=== PATIENT | female | born 1935 | race Caucasian/White ===

== ENCOUNTER 2016-07-19 18:54 | Inpatient (IN) | payer OTHER ==
--- NOTE | 2016-07-19 19:07 | CPEKG ---
Heart Rate: 90 RR Interval: 667 P-R Interval: 120 QRSD Interval: 92 QT Interval: 392 QTC Interval: 480 P [place]: 79 QRS [place]: 12 T Wave [place]: 55 EKG Severity - BORDERLINE ECG - EKG Impression: SINUS RHYTHM EKG Impression: BORDERLINE T ABNORMALITIES, ANTERIOR LEADS Electronically Signed By: Manoj Flores 19-Jul-2016 19:16:38
[2016-07-19] MEDS ORDERED: NS 1,000 ML IV ONE (19:10)
--- NOTE | 2016-07-19 19:15 | EDPHY ---
H & P Time Seen by Provider: 07/19/16 19:04 HPI/ROS: CHIEF COMPLAINT: Failure to thrive HISTORY OF PRESENT ILLNESS: patient is an 81-year-old female who comes to the emergency department by EMS for failure to thrive. She has a history only of hypertension. EMS states that they were at her house yesterday for lift assist. Today she was lying on the floor because she was too weak to get up. She denies any trauma or injury. She is dehydrated clinically. her only family lives in [place]. Paramedics state that the house was in disarray and that the toilet are not in working order. Her family has not been to see her for 3 years at which time she was doing much better. REVIEW OF SYSTEMS: Constitutional: denies: chills, fever, recent illness, recent injury EENTM: denies: blurred vision, double vision, nose congestion Respiratory: denies: cough, shortness of breath Cardiac: denies: chest pain, irregular heart rate, lightheadedness, palpitations Gastrointestinal/Abdominal: denies: abdominal pain, diarrhea, nausea, vomiting, blood streaked stools Genitourinary: denies: dysuria, frequency, hematuria, pain Musculoskeletal: generalized weakness no focal weakness Skin: denies: lesions, rash, jaundice, bruising Neurological: denies: headache, numbness, paresthesia, tingling, dizziness, weakness Hematologic/Lymphatic: denies: blood clots, easy bleeding, easy bruising Immunologic/allergic: denies: HIV/AIDS, transplant EXAM: GENERAL: thin, dirty teeth, stool on close, in no acute distress. Alert and making jokes HEAD: Atraumatic, normocephalic. EYES: Pupils equal round and reactive to light, extraocular movements intact, sclera anicteric, conjunctiva are normal. ENT: TMs normal, nares patent, oropharynx clear without exudates. dry mucous membranes. NECK: Normal range of motion, supple without lymphadenopathy or JVD. LUNGS: Breath sounds clear to auscultation bilaterally and equal. No wheezes rales or rhonchi. HEART: Regular rate and rhythm without murmurs, rubs or gallops. ABDOMEN: Soft, nontender, normoactive bowel sounds. No guarding, no rebound. No masses appreciated. BACK: No CVA tenderness, no spinal tenderness, step-offs or deformities EXTREMITIES: Normal range of motion, no pitting or edema. No clubbing or cyanosis. NEUROLOGICAL: Cranial nerves II through XII grossly intact. Normal speech, normal gait. 5/5 strength, normal movement in all extremities, normal sensation , no headache PSYCH: Normal mood, normal affect. SKIN: Warm, dry, normal turgor, no visible rashes or lesions. Source: Patient Exam Limitations: No limitations - Personal History Tetanus Vaccine Date: 2005 - Medical/Surgical History Hx Asthma: No Hx Chronic Respiratory Disease: No Hx Diabetes: No Hx Cardiac Disease: No Hx Renal Disease: No Hx Cirrhosis: No Hx Alcoholism: No Other PMH: HTN - Family History Significant Family History: No pertinent family hx - Social History Smoking Status: Former smoker Alcohol Use: Sober Drug Use: None Constitutional: Initial Vital Signs Temperature (C) 37 C 07/19/16 19:10 Heart Rate 83 07/19/16 19:10 Respiratory Rate 20 07/19/16 19:10 Blood Pressure 169/83 H 07/19/16 19:10 O2 Sat (%) 95 07/19/16 19:10 O2 Delivery Mode Room Air Allergies/Adverse Reactions: No Known Allergies Allergy (Unverified 01/26/14 18:41) Home Medications: Medication Instructions Recorded ATENOLOL [Atenolol 50 mg] 50 mg PO HS 07/19/16 Ibuprofen [Motrin (*)] 200 mg PO BID PRN 07/19/16 Lisinopril [Zestril 5 mg (*)] 5 mg PO HS 07/19/16 Medical Decision Making - Diagnostics EKG Interpretation: An EKG obtained and was read and documented in trace view. Please see trace view for full reading and report. Sinus rhythm, no acute ischemic changes ED Course/Re-evaluation: The patient will be admitted for failure to thrive and inability to care for herself. She also may have a urinary tract infection she has a diaper rash from fecal contamination. The urinalysis was obtained with a catheter. discussed the case with Dr. Mariah Mazariegos who will admit. Differential Diagnosis: Partial list of the Differential diagnosis considered include but were not limited to; Failure to thrive, dehydration, urinary tract infection and although unlikely based on the history and physical exam, I also considered CVA , acute coronary disease. - Data Points Laboratory Results: Laboratory Results 07/19/16 19:00 07/19/16 19:00 07/19/16 07/19/16 07/19/16 19:40 19:00 19:00 WBC 8.86 10^3/uL 10^3/uL (3.80-9.50) RBC 4.32 10^6/uL 10^6/uL (4.18-5.33) Hgb 13.6 g/dL g/dL (12.6-16.3) Hct 40.9 % % (38.0-47.0) MCV 94.7 fL fL (81.5-99.8) MCH 31.5 pg pg (27.9-34.1) MCHC 33.3 g/dL g/dL (32.4-36.7) RDW 13.3 % % (11.5-15.2) Plt Count 211 10^3/uL 10^3/uL (150-400) MPV 11.3 fL fL (8.7-11.7) Neut % (Auto) 71.4 % % (39.3-74.2) Lymph % (Auto) 16.7 % % (15.0-45.0) Cassia % (Auto) 9.8 % % (4.5-13.0) Eos % (Auto) 0.9 % % (0.6-7.6) Baso % (Auto) 0.7 % % (0.3-1.7) Nucleat RBC Rel Count 0.0 % % (0.0-0.2) Absolute Neuts (auto) 6.33 10^3/uL 10^3/uL (1.70-6.50) Absolute Lymphs (auto) 1.48 10^3/uL 10^3/uL (1.00-3.00) Absolute Monos (auto) 0.87 10^3/uL H 10^3/uL (0.30-0.80) Absolute Eos (auto) 0.08 10^3/uL 10^3/uL (0.03-0.40) Absolute Basos (auto) 0.06 10^3/uL 10^3/uL (0.02-0.10) Absolute Nucleated RBC 0.00 10^3/uL 10^3/uL (0-0.01) Immature Gran % 0.5 % % (0.0-1.1) Immature Gran # 0.04 10^3/uL 10^3/uL (0.00-0.10) Sodium 142 mEq/L mEq/L (134-144) Potassium 4.2 mEq/L mEq/L (3.5-5.2) Chloride 109 mEq/L mEq/L (97-110) Carbon Dioxide 20 mEq/l L mEq/l (22-31) Anion Gap 13 mEq/L mEq/L (8-16) BUN 42 mg/dL H mg/dL (7-23) Creatinine 0.8 mg/dL mg/dL (0.6-1.0) Estimated GFR > 60 Glucose 88 mg/dL mg/dL (70-100) Calcium 9.3 mg/dL mg/dL (8.5-10.4) Urine Color YELLOW Urine Appearance HAZY Urine pH 5.0 (5.0-7.5) Ur Specific [place] 1.023 (1.002-1.030) Urine Protein NEGATIVE (NEGATIVE) Urine Ketones 2+ H (NEGATIVE) Urine Blood NEGATIVE (NEGATIVE) Urine Nitrate NEGATIVE (NEGATIVE) Urine Bilirubin NEGATIVE (NEGATIVE) Urine Urobilinogen NEGATIVE EU EU (0.2-1.0) Ur Leukocyte Esterase TRACE H (NEGATIVE) Urine RBC 10-15 /hpf H /hpf (0-3) Urine WBC 10-15 /hpf H /hpf (0-3) Ur Epithelial Cells TRACE /lpf /lpf (NONE-1+) Amorphous Sediment PRESENT /hpf /hpf (NONE-1+) Hyaline Casts 1-5 /lpf /lpf (0-1) Urine Mucus TRACE /lpf /lpf (NONE-1+) Urine Glucose NEGATIVE (NEGATIVE) Departure - Departure Disposition: [facility] Inpatient Acute Clinical Impression: Dehydration Failure to thrive Qualifiers: Failure to thrive age range: in adult Qualified Code(s): R62.7 - Adult failure to thrive Urinary tract infection Qualifiers: Urinary tract infection type: acute cystitis Hematuria presence: without hematuria Qualified Code(s): N30.00 - Acute cystitis without hematuria Condition: Fair
[2016-07-19 19:20] LABS: % IMMATURE GRANULYOCYTES 0.5 % (0.0-1.1); ABSOLUTE IMMATURE GRANULOCYTES 0.04 10^3/uL (0.00-0.10); ADD DIFF? NO; ADD MORPH? NO; ADD SCAN? NO; ATYPICAL LYMPHOCYTE FLAG 0 (0-99); FRAGMENT RBC FLAG 0 (0-99); HEMATOCRIT 40.9 % (38.0-47.0); HEMOGLOBIN 13.6 g/dL (12.6-16.3); LEFT SHIFT FLG 0 (0-99); LIPEMIA HEMOLYSIS FLAG 80 (0-99); MEAN CELL HEMOGLOBIN 31.5 pg (27.9-34.1); MEAN CELL HEMOGLOBIN CONCENTR. 33.3 g/dL (32.4-36.7); MEAN CELL VOLUME 94.7 fL (81.5-99.8); MEAN PLATELET VOLUME 11.3 fL (8.7-11.7); PLATELET CLUMPS FLAG 0 (0-99); PLATELET COUNT 211 10^3/uL (150-400); RED BLOOD CELL COUNT 4.32 10^6/uL (4.18-5.33); RED CELL DISTRIBUTION WIDTH 13.3 % (11.5-15.2)
[2016-07-19 19:36] LABS: ANION GAP 13 mEq/L (8-16); CALCIUM 9.3 mg/dL (8.5-10.4); CARBON DIOXIDE 20 mEq/l (22-31); CHLORIDE 109 mEq/L (97-110); CREATININE 0.8 mg/dL (0.6-1.0); GLOMERULAR FILTRATION RATE > 60; GLUCOSE 88 mg/dL (70-100); POTASSIUM 4.2 mEq/L (3.5-5.2); SODIUM 142 mEq/L (134-144)
[2016-07-19 19:53] LABS: COLOR YELLOW; LEUKOCYTE ESTERASE,URINE TRACE (NEGATIVE); NITRITE,URINE NEGATIVE (NEGATIVE)
[2016-07-19 20:00] LABS: AMORPHOUS PRESENT /hpf (NONE-1+); MUCUS TRACE /lpf (NONE-1+)
[2016-07-19] MEDS ORDERED: CEFTRIAXONE 1 GM/DEXTROSE/50 ML BAG IV ONE (20:21)
[2016-07-19] MEDS ORDERED: ONDANSETRON DISINTEGRATING 4 MG TAB PO PRN (22:40)
[2016-07-19] MEDS ORDERED: ACETAMINOPHEN 325 MG TAB PO PRN (22:40)
[2016-07-19] MEDS ORDERED: ONDANSETRON 4 MG/2 ML VIAL IVP PRN (22:40)
[2016-07-19] MEDS: LISINOPRIL 5 MG TAB PO SCH ×2 (23:17→23:19)
[2016-07-19] MEDS: ATENOLOL 50 MG TAB PO SCH ×2 (23:17→23:19)
[2016-07-19] MEDS ORDERED: NS 1,000 ML IV SCH (23:45)
--- NOTE | 2016-07-20 01:24 | GHP ---
[f rep st] HISTORY AND PHYSICAL DATE OF ADMISSION: 07/19/2016 CHIEF COMPLAINT: Weakness, syncope. HISTORY OF PRESENT ILLNESS: Patient is an 81-year-old female with past medical history of hypertension, who presented with diffuse weakness and 3 syncopal episodes within the last week. She reports decreased p.o. intake for the last several months due to increased stressors with family issues involving her son. She buys groceries, but then has no energy to cooks meals except for breakfast. She denies any prodromal symptoms including chest pain, shortness of breath, dizziness, palpitations, diaphoresis, or nausea. She denies injury during any of these falls. She does not think she hit her head. She did have some dry heaving with a couple of the episodes. Denies any fevers, chills, or sweats. No cough. No diarrhea. She admits that she is overall weak and probably needs to move to assisted living and is now coming to terms with it. Her son from [place] came in town and encouraged her to come to the emergency room. She has reported weight loss over the last year, but could not quantify. REVIEW OF SYSTEMS: I completed a 10-point review of systems, negative except as noted in HPI. PAST MEDICAL HISTORY: Hypertension. PAST SURGICAL HISTORY: Hysterectomy. SOCIAL HISTORY: Lives alone in [place], has 2 sons, 1 in [place]. Remote cigarettes, occasional alcohol, no drugs. FAMILY HISTORY: Thyroid issues. Father had an ID. ALLERGIES: No known drug allergies. MEDICATIONS: At home lisinopril 5 mg daily, atenolol 50 q.h.s., Ibuprofen as needed. PHYSICAL EXAM: VITAL SIGNS: Temperature 36.8, blood pressure 122/58 to 169/83 , heart rate is 94-104, respirations 16, 98% on room air. GENERAL: Frail- appearing, no acute distress. HEENT: PERRLA. Dry mucous membranes. CV: Regular rate and rhythm. No murmurs, gallops, or rubs. LUNGS: Clear to auscultation. No crackles. GI: Soft, nontender, nondistended. No suprapubic tenderness. MUSCULOSKELETAL: Generalized weakness, but good hand strength. SKIN: Warm, dry skin. Poor skin turgor. NEURO: 2 through 12 intact. PSYCH: Alert and oriented x3. Very pleasant. LABORATORY DATA: WBC 8, hemoglobin 13, hematocrit 40, platelets 211, sodium 142 , potassium 4.2, chloride 109, carbon dioxide 20, BUN 42, creatinine 0.8, glucose 88, calcium 9.3. LFTs are pending. EKG is personally reviewed by me. ST flattening anterior leads. No old to compare. UA 10-15 WBCs. Urine culture pending. ASSESSMENT AND PLAN: 1. Syncope: Differential includes orthostatic, arrhythmia versus seizure. Denies any prodromal symptoms to suggest arrhythmia. Will monitor on telemetry. Suspect orthostatic with poor p.o. intake. IVFs, check orthostatics. Consider echo in the morning. 2. Generalized weakness: check a TSH, treating for UTI. She admits that she should move to an assisted living facility and wants to talk to social media analyst in the morning. 3. Falls: decreased PO, UTI. Check Vit D. Physical therapy, occupational therapy to evaluate. 4. Urinary tract infection treated with ceftriaxone daily. Culture is pending. She is currently afebrile. 5. Accelerated HTN: cont home meds 6. Diet: Regular. 7. Deep venous thrombosis prophylaxis: Lovenox. 8. Disposition: Patient warrants inpatient admission given falls, risk for injury to self. Will monitor on telemetry. Physical therapy, occupational therapy evaluations. /[id number]/MODL MTDD
[2016-07-20 05:33] LABS: ALANINE AMINOTRANSFERASE 67 IU/L (9-52); ALBUMIN 3.1 g/dL (3.5-5.0); ALKALINE PHOSPHATASE 66 IU/L (38-126); ANION GAP 6 mEq/L (8-16); ASPARTATE AMINOTRANSFERASE 106 IU/L (14-46); BILIRUBIN,TOTAL 0.9 mg/dL (0.1-1.4); BILIRUBIN-CONJUGATED 0.4 mg/dL (0.0-0.5); BILIRUBIN-UNCONJUGATED 0.5 mg/dL (0.0-1.1); CALCIUM 8.4 mg/dL (8.5-10.4); CARBON DIOXIDE 24 mEq/l (22-31); CHLORIDE 112 mEq/L (97-110); CREATININE 0.7 mg/dL (0.6-1.0); GLOMERULAR FILTRATION RATE > 60; GLUCOSE 92 mg/dL (70-100); SODIUM 142 mEq/L (134-144); TOTAL PROTEIN 6.3 g/dL (6.3-8.2)
[2016-07-20] MEDS: ENOXAPARIN 40 MG/0.4 ML SYR SC SCH (08:44)
--- NOTE | 2016-07-20 08:53 | WOCRNPDOC ---
WOCRN Advanced Assessment Note - Skin Integrity Problem, Advanced Assess Bilateral Buttock Dressing Type: Open to Air Skin Integrity Problem Comment: Moderate incontinence associated dermatitis with fungal involvement. Antifungal barrier cream wound be beneficial. Coccyx Pressure Injury Dressing Type: Open to Air Exudate Amount: None Ayla Wound Tissue: Erythema, Macerated, Non-blanching Ayla Wound Swelling: Mild Wound Bed Color: Red, Yellow Wound Bed Constitution: Granulation Tissue, Adhered Slough Wound Edges: Attached Site Measurement - Head-to-Toe Length X Width X Depth (cm): 6.5x1x0.3 Pressure Injury Stage: Unstageable Pressure Injury Present on Admit: Yes Skin Integrity Problem Comment: Coccyx pressure injury combined with intertrigenous dermatitis. The superior 3 cm portion of this wound is open with 40% slough. The inferior portion has the epidermis intact but severely compromised and macerated. Due to continued incontinence a dressing cannot be placed at this time. Left Lateral Ankle Pressure Injury Dressing Type: Open to Air Exudate Amount: None Site Measurement - Head-to-Toe Length X Width X Depth (cm): 0.5x0.5xscab Pressure Injury Stage: Stage 2 Pressure Injury Present on Admit: Yes Left Lateral Foot Pressure Injury Dressing Type: Open to Air Exudate Amount: None Site Measurement - Head-to-Toe Length X Width X Depth (cm): 1.8x1.8x0 Pressure Injury Stage: Stage 1 Pressure Injury Present on Admit: Yes Left Lateral Heel Pressure Injury Dressing Type: Open to Air Wound Bed Constitution: Scab Site Measurement - Head-to-Toe Length X Width X Depth (cm): 0.5x0.5xscab Pressure Injury Stage: Stage 2 Pressure Injury Present on Admit: Yes
--- NOTE | 2016-07-20 15:17 | HOSPPROG ---
Hospitalist Progress Note Assessment/Plan: This is a 81-year-old female new to my care presenting with: # weakness and syncope most likely due to dehydration and malnutrition given her significant pre renal azotemia and ketonuria on presentation # doubt UTI suspect asymptomatic pyuria given her lack of urinary tract symptoms -DC IV antibiotics # weakness and mechanical falls # accelerated hypertension (controlled) Disposition: Patient remains weak and requires further IV hydration. Will plan to discharge to his group home for given the severity of her weakness and gait instability Subjective: feels weak and unsteady on her feet. admits to not eating or drinking leading up to admission. does not feel strong enough to return home Objective: Vital Signs Temp Pulse Resp BP Pulse Ox 36.8 C 84 13 134/64 H 95 07/20/16 12:00 07/20/16 12:00 07/20/16 12:00 07/20/16 12:00 07/20/16 12:00 Laboratory Results 07/20/16 04:35 07/19/16 07/20/16 07/21/16 05:59 05:59 05:59 Intake Total 250 Balance 250 - Physical Exam Constitutional: no apparent distress, appears nourished, not in pain Cardiovascular: regular rate and rhythym, no murmur, rub, or gallop Respiratory: no respiratory distress, no rales or rhonchi, clear to auscultation Gastrointestinal: normoactive bowel sounds, soft, non-tender abdomen, no palpable masses Skin: no rashes or abrasions, no fluctuance, no induration ICD10 Worksheet Patient Problems: Problems Problem Status Onset Failure to thrive Acute Dehydration Acute Urinary tract infection Acute
[2016-07-20] MEDS: LISINOPRIL 5 MG TAB PO SCH (20:59)
[2016-07-20] MEDS: ATENOLOL 50 MG TAB PO SCH (20:59)
[2016-07-21 05:43] LABS: ALANINE AMINOTRANSFERASE 60 IU/L (9-52); ALBUMIN 2.7 g/dL (3.5-5.0); ALKALINE PHOSPHATASE 52 IU/L (38-126); ANION GAP 3 mEq/L (8-16); ASPARTATE AMINOTRANSFERASE 66 IU/L (14-46); BILIRUBIN,TOTAL 0.8 mg/dL (0.1-1.4); CALCIUM 8.3 mg/dL (8.5-10.4); CARBON DIOXIDE 25 mEq/l (22-31); CHLORIDE 112 mEq/L (97-110); CREATININE 0.8 mg/dL (0.6-1.0); GLOMERULAR FILTRATION RATE > 60; GLUCOSE 103 mg/dL (70-100); POTASSIUM 4.2 mEq/L (3.5-5.2); SODIUM 140 mEq/L (134-144); TOTAL PROTEIN 5.7 g/dL (6.3-8.2)
[2016-07-21] MEDS: ENOXAPARIN 40 MG/0.4 ML SYR SC SCH (10:00)
--- NOTE | 2016-07-21 15:26 | HOSPPROG ---
Hospitalist Progress Note Assessment/Plan: This is a 81-year-old female new to my care presenting with: # weakness and syncope most likely due to dehydration and malnutrition given her significant pre renal azotemia and ketonuria on presentation (improving) - buff cap IV - encourage oral hydration and nutrition # doubt UTI suspect asymptomatic pyuria given her lack of urinary tract symptoms - continue to monitor off of antibiotics # weakness and mechanical falls on exam the patient has a pill rolling tremor as well as some cogwheel rigidity. I have discussed this with Dr. corral from Neurology will see the patient in consultation to further evaluate for Parkinson 's as a possible etiology for her increasing weakness and failure to thrive at home. # accelerated hypertension (controlled) Disposition: Patient remains weak. Will plan to discharge to [facility]dc for given the severity of her weakness and gait instability Subjective: Feeling stronger today. She is tolerating a regular diet and is drinking. She is still unsteady on her feet and plans to discharge to fdc facility once a bed is available. She denies any urinary complaints. She denies any fevers or chills. Objective: Vital Signs Temp Pulse Resp BP Pulse Ox 37 C 73 18 100/56 L 95 07/21/16 11:49 07/21/16 11:49 07/21/16 11:49 07/21/16 11:49 07/21/16 11:49 Laboratory Results 07/21/16 04:49 07/20/16 07/21/16 07/22/16 05:59 05:59 05:59 Intake Total 250 Balance 250 - Physical Exam Constitutional: no apparent distress, appears nourished, not in pain Cardiovascular: regular rate and rhythym, no murmur, rub, or gallop Respiratory: no respiratory distress, no rales or rhonchi, clear to auscultation , No rhonchi Gastrointestinal: normoactive bowel sounds, soft, non-tender abdomen, no palpable masses Genitourinary: no bladder fullness, no bladder tenderness Skin: warm, no rashes or abrasions, no fluctuance, no induration Neurologic: AAOx3 ( ), other ( Resting tremor with pill rolling; cogwheel rigidity in bilateral arms) ICD10 Worksheet Patient Problems: Problems Problem Status Onset Failure to thrive Acute Dehydration Acute Urinary tract infection Acute
--- NOTE | 2016-07-21 15:49 | NEUROPROG ---
Assessment: Adrianna Gerard CC: Diffuse weakness, Syncope HPI: This 81F patient was initially seen as an inpatient consult at [facility] on . She was admitted on 07/19/16 to [facility] for 1 week of diffuse weakness and 3 syncopal spells. The syncope was felt to be most likely from poor PO intake causing dehydration/malnutrition. She reported months of decreased PO intake due to stress and low energy levels. She was noted to have bacteria in her urine but it was not clear if it was a symptomatic UTI or not. She denied chest pain, SOB, dizziness, palpitations, [id number], or nausea. None of the syncope spells was associated with injury and she had no shaking or prolonged post-ictal states. She acknowledges she likely cannot care for herself at home and is open minded to an assisted living facility. She was noted to have bilateral hand pill rolling tremor prompting a neurology consult. PMHx: HTN, Hysterectomy Home Meds: lisinopril, atenolol, motrin SHx: lives alone in [place] FHx: thyroid, CA ROS: Pt denied acute fever, total vision loss, active severe chest pain, respiratory failure, total body severe rash, total bowel/bladder incontinence, psychosis, active seizures, or active bleeding O: VS bp 100/56 P73 RR18 Satting 95% on RA Temp 37C General: Alert Eyes: Fundoscopic exam not able to visualize optic disks CV: Heart RRR, no murmur, no carotid bruit Lungs: Clear to auscultation bilaterally, no rhonci or rales Neuro: - Mental: . Oriented x person/place/date . concentration appears normal . speech fluency/comprehension normal . memory appears normal . fund of knowledge appear intact - Cranial Nerves: . II: PERRL, VFFTC . III/IV/: EOMI, no nystagmus, normal smooth pursuits, no Ptosis . V: facial sensation intact to LT . VII: face symmetric to eye closure and smile . VIII: hearing intact to conversation . IX/X: uvula raises symmetrically . XI: SCM 5/5 B/L strength . XII: tongue protrudes midline w/nl strength - Motor: . Tone: bilateral tremor in both hands at rest and with movement, slightly increased tone in both arms that is subtle . 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 Bilateral Hand Tremor: Her neurologic exam showed bilateral hand tremor with some slight bilateral rigidity in both arms. She has no bradykinesia and mentation appears generally normal. She is under great stress and has not been eating. She may have a parkinsonian tremor but she may also have an essential tremor or orthostatic tremor (chronic dehydration). At this time, I feel the best therapy is placement in a situation to guarantee she gets good nutrition and then f/u with me in the outpatient clinic in 2-3 weeks to determine if the tremor requires treatment. She is in agreement with this plan. 2. Failure to Thrive: This appears to be multi-factorial from stress, advanced age, and possibly an underlying mild parkinsinism. Plan: - Agree with plans for placement in a facility to ensure good nutrition and hydration - F/U in neurology clinic in 2-4 weeks to consider medication trials for her bilateral hand tremor Objective: Vital Signs Temp Pulse Resp BP Pulse Ox 37 C 73 18 100/56 L 95 07/21/16 11:49 07/21/16 11:49 07/21/16 11:49 07/21/16 11:49 07/21/16 11:49 Laboratory Results 07/21/16 04:49 07/20/16 07/21/16 07/22/16 05:59 05:59 05:59 Intake Total 250 Balance 250 Allergies/Adverse Reactions: No Known Allergies Allergy (Unverified 01/26/14 18:41)
[2016-07-21] MEDS: ATENOLOL 50 MG TAB PO SCH (20:31)
[2016-07-21] MEDS: LISINOPRIL 5 MG TAB PO SCH (20:31)
[2016-07-22 03:41] VITALS: RESP 14
[2016-07-22 05:43] LABS: ALANINE AMINOTRANSFERASE 50 IU/L (9-52); ALBUMIN 2.6 g/dL (3.5-5.0); ALKALINE PHOSPHATASE 50 IU/L (38-126); ANION GAP 6 mEq/L (8-16); ASPARTATE AMINOTRANSFERASE 44 IU/L (14-46); BILIRUBIN,TOTAL 0.5 mg/dL (0.1-1.4); CALCIUM 8.3 mg/dL (8.5-10.4); CARBON DIOXIDE 24 mEq/l (22-31); CHLORIDE 113 mEq/L (97-110); CREATININE 0.7 mg/dL (0.6-1.0); GLOMERULAR FILTRATION RATE > 60; GLUCOSE 102 mg/dL (70-100); POTASSIUM 4.4 mEq/L (3.5-5.2); SODIUM 143 mEq/L (134-144); TOTAL PROTEIN 5.3 g/dL (6.3-8.2)
[2016-07-22] MEDS: ENOXAPARIN 40 MG/0.4 ML SYR SC SCH (08:34)
--- NOTE | 2016-07-22 11:36 | PDIAF ---
- Diagnosis Diagnosis: dehydration/malnutrition weakness Code Status: Do Not Resuscitate - Medication Management Discharge Medications: Medications to Continue on Transfer ATENOLOL [Atenolol 50 mg] 50 mg PO HS 07/19/16 [Last Taken 07/17/16] Ibuprofen [Motrin (*)] 200 mg PO BID PRN 07/19/16 [Last Taken 07/12/16] Lisinopril [Zestril 5 mg (*)] 5 mg PO HS 07/19/16 [Last Taken 07/17/16] Acetaminophen [Tylenol 325mg (*)] 650 mg PO Q4HRS PRN #0 tab 07/22/16 [Last Taken Unknown] Discharge Medications: Refer to the Discharge Home Medication list for PRN reason. - Orders Services needed: Registered Nurse, Physical Therapy, Occupational Therapy Diet Recommendation: no restrictions on diet Diet Texture: Regular Texture Diet - Follow Up Care Current Providers and Referrals: Patient,NotPresent [Unknown] - As per Instructions
[2016-07-22 12:24] VITALS: BP 118/47; PULSE 72; TEMP 98.3; O2SAT 95
--- NOTE | 2016-07-22 13:44 | GDS ---
[f rep st] DISCHARGE SUMMARY DISCHARGE DIAGNOSES: 1. Weakness and syncope, most likely due to dehydration and malnutrition given significant stress a t home. 2. Asymptomatic pyuria with urine growing Aerococcus urinae. 3. Longstanding urinary incontinence. 4. Resting tremor and rigidity, possibly due to dehydration and malnutrition versus underlying undi agnosed Parkinson's. 5. Controlled hypertension. CONSULTANTS: Dr. Eliecer Scanlon, Neurology. HOSPITAL COURSE AND STAY BY PROBLEM: Weakness and syncope: The patient was admitted to the [facility], where she initially presented feeling very weak, with possible syncopal episodes. On initial pre sentation, her BUN was 42 with a creatinine of 0.8. She had ketones in her urine as well as trace l eukocyte esterase and 10-15 WBCs. It was initially thought that she may have a urinary tract infect ion and received 2 doses of IV Rocephin. Upon further questioning of the patient, it sounds like garfield almonte has never had any urinary symptoms other than longstanding urinary incontinence. The patient's strength and labs improved with IV hydration and encouragement of oral diet. On day o f discharge, she tells me that she is starting to feel stronger but is agreeable to go to a alf facility for further rehabilitation. On my exam, the patient was noted to have a pill-rolling tremor as well as some mild rigidity. I co nsulted Dr. Scanlon from Neurology, who was not convinced that she has underlying Parkinson's, but thou ght it may be a possibility. He would like to see her in followup in 3 weeks to consider a trial of Sinemet if her rigidity and tremor are not improving. PHYSICAL EXAM: VITAL SIGNS: On day of discharge, blood pressure 118/47, pulse 72, respiratory rate 14, O2 sat 95% on room air, temperature afebrile. GENERAL: No acute distress. HEART: S1, S2. L UNGS: Clear. ABDOMEN: Soft. NEURO: She has a pill-rolling tremor and some mild rigidity. DIAGNOSTICS DONE THIS HOSPITAL STAY: Urine culture grew Aerococcus urinae. DISCHARGE MEDICATIONS: Please refer to discharge medication reconciliation in [facility] for details. DISCHARGE INSTRUCTIONS: The patient will be discharged from the hospital, where she will be transfe rred to [facility] for further rehabilitation. She should follow up with Dr. Eliecer Scanlon from [facility] in 3 weeks. She should be encouraged to eat and drink. She should be monitored cl osely for signs and symptoms of urinary tract infection and treat accordingly based on the culture a nd sensitivity from the urine culture done 07/19/2016. At the time of this dictation, the sensitivi ty to the Aerococcus is not yet completed. /[id number]/MODL
== END 2016-07-22 16:56 | DRG 641 ==
LOC: EDUNIT# → F3E 21:55 → OBSVTOIN 22:40
PROVIDERS: ADMIT Hospitalist; ATTEND Family Medicine
DX: E86.0 Dehydration (principal); E46 Unspecified protein-calorie malnutrition; N39.0 Urinary tract infection, site not specified; B96.89 Other specified bacterial agents as the cause of diseases classified elsewhere; R25.1 Tremor, unspecified; R29.898 Other symptoms and signs involving the musculoskeletal system; R33.9 Retention of urine, unspecified; I10 Essential (primary) hypertension; F43.9 Reaction to severe stress, unspecified
CPT/HCPCS: 82652-90; 96365; 97162-GP; 97165-GO; 97530-GO; G8978-GP-CL; G8979-GP-CI; G8987-GO-CK; G8988-GO-CJ; J0696; J1650

== ENCOUNTER 2016-12-21 23:53 | Emergency (ER) | payer OTHER ==
[2016-12-22 00:06] VITALS: RESP 18; TEMP 97.7
[2016-12-22 00:19] LABS: % IMMATURE GRANULYOCYTES 0.4 % (0.0-1.1); ABSOLUTE IMMATURE GRANULOCYTES 0.03 10^3/uL (0.00-0.10); ADD DIFF? NO; ADD MORPH? NO; ADD SCAN? NO; ATYPICAL LYMPHOCYTE FLAG 0 (0-99); FRAGMENT RBC FLAG 0 (0-99); HEMATOCRIT 40.1 % (38.0-47.0); HEMOGLOBIN 13.1 g/dL (12.6-16.3); LEFT SHIFT FLG 0 (0-99); LIPEMIA HEMOLYSIS FLAG 80 (0-99); MEAN CELL HEMOGLOBIN 30.6 pg (27.9-34.1); MEAN CELL HEMOGLOBIN CONCENTR. 32.7 g/dL (32.4-36.7); MEAN CELL VOLUME 93.7 fL (81.5-99.8); MEAN PLATELET VOLUME 9.8 fL (8.7-11.7); PLATELET CLUMPS FLAG 0 (0-99); PLATELET COUNT 304 10^3/uL (150-400); RED BLOOD CELL COUNT 4.28 10^6/uL (4.18-5.33); RED CELL DISTRIBUTION WIDTH 13.1 % (11.5-15.2)
[2016-12-22 00:29] LABS: POTASSIUM 4.9 mEq/L (3.5-5.2); SODIUM 142 mEq/L (134-144)
[2016-12-22 00:30] LABS: ANION GAP 15 mEq/L (8-16); CALCIUM 9.6 mg/dL (8.5-10.4); CARBON DIOXIDE 23 mEq/l (22-31); CHLORIDE 104 mEq/L (97-110); CREATININE 1.1 mg/dL (0.6-1.0); GLOMERULAR FILTRATION RATE 47; GLUCOSE 107 mg/dL (70-100)
--- NOTE | 2016-12-22 00:32 | EDPHY ---
H & P Stated Complaint: left lower rib/flank pain Time Seen by Provider: 12/22/16 00:02 HPI/ROS: HPI The patient presents brought in by ambulance for left-sided lower rib cage pain. She recently, 3 days ago relocated from [facility] to [facility]. She is sleeping on a bed that is quite high and requires 2-3 person assist to get into. She was transferred to her bed with some difficulty tonight. While in bed she heard her phone ring and sat upright to answer it. She then developed a left-sided sharp lower ribcage pain. This pain does not have radiation is not associated with any nausea or vomiting. She says it feels like when she injured the cartilage of her rib many years ago. The pain is worse with a deep breath.. REVIEW OF SYSTEMS Constitutional: No fever, no chills. Eyes: No discharge. ENT: No sore throat. Cardiovascular: Positive for chest pain, no palpitations. Respiratory: No cough, no shortness of breath. Gastrointestinal: No abdominal pain, no vomiting. Genitourinary: No hematuria. Musculoskeletal: No back pain. Skin: No rashes. Neurological: No headache. PMHx: Hypertension, anxiety, osteoporosis, uses a wheelchair, has most form with her stating that she is comfort measures only Soc Hx: Currently resides at [facility], used to work at [employer] PHYSICAL General Appearance: Alert, no distress Eyes: Pupils equal and round no pallor or injection ENT, Mouth: Mucous membranes moist Respiratory: There are no retractions, lungs are clear to auscultation Cardiovascular: Regular rate and rhythm Gastrointestinal: Abdomen is soft and non-tender, no masses, bowel sounds normal Neurological: A&O, moves all extremities Skin: Warm and dry, no rashes Musculoskeletal: Neck is supple non tender Extremities: symmetrical, full range of motion Psychiatric: Patient is oriented X 3, there is no agitation Source: Patient, EMS Exam Limitations: No limitations - Personal History Current Tetanus Diphtheria and Acellular Pertussis (TDAP): Yes Tetanus Vaccine Date: 2005 - Medical/Surgical History Hx Asthma: No Hx Chronic Respiratory Disease: No Hx Diabetes: No Hx Cardiac Disease: No Hx Renal Disease: No Hx Cirrhosis: No Hx Alcoholism: No Hx HIV/AIDS: No Hx Splenectomy or Spleen Trauma: No Other PMH: anxiety, HTN, faliure to thrive, osteoprosis. tonsilectomy - Social History Smoking Status: Former smoker Constitutional: Initial Vital Signs Temperature (C) 36.5 C 12/22/16 00:04 Heart Rate 70 12/22/16 00:04 Respiratory Rate 18 12/22/16 00:04 Blood Pressure 181/95 H 12/22/16 00:04 O2 Sat (%) 93 12/22/16 00:04 O2 Delivery Mode Room Air Allergies/Adverse Reactions: No Known Allergies Allergy (Unverified 01/26/14 18:41) Home Medications: Medication Instructions Recorded ATENOLOL [Atenolol 50 mg] 50 mg PO HS 07/19/16 Ibuprofen [Motrin (*)] 200 mg PO BID PRN 07/19/16 Lisinopril [Zestril 5 mg (*)] 5 mg PO HS 07/19/16 Acetaminophen [Tylenol 325mg (*)] 650 mg PO Q4HRS PRN #0 tab 07/22/16 Medical Decision Making - Diagnostics Imaging Results: Chest x-ray two view shows small left-sided pleural effusion, no cardiomegaly, interpreted by me, radiology interpretation is pending. Imaging: I viewed and interpreted images myself Procedures: Bedside pulmonary Ultrasound- performed and interpreted by me. Indication: Left-sided pleuritic chest wall pain Findings: Tiny left-sided pleural effusion, no pneumothorax, no B lines present Impression: Tiny left-sided pleural effusion Differential Diagnosis: 81-year-old female with hypertension, anxiety, recent failure to thrive, recently relocated to [facility] who presents brought in by ambulance for left-sided lower anterior rib pain. On exam, she is hypertensive , otherwise has normal vital signs, I am not able to elicit any tenderness on exam. Differential diagnosis includes chest wall contusion, rib fracture, pneumonia, pleural effusion, pneumothorax. I doubt intra-abdominal process given no tenderness. I doubt ACS given the pain is limited to the chest wall. In the emergency department, the patient was given a L of normal saline and Toradol for pain with some improvement in her symptoms. Labs were checked and did reveal elevated BUN and creatinine consistent with dehydration. The patient states that she has been restricting her fluids because she is concerned about incontinence. Chest x-ray revealed small left-sided pleural effusion, bedside ultrasound was performed to confirm this diagnosis. We discussed further testing including CT scan, however patient declines and would like to return to her assisted living facility. She is comfort measures only, so I feel this is reasonable. It is unclear if the CT scan would change the treatment course of this finding. She can follow up with her primary care doctor in repeat chest x-ray can be performed to monitor the effusion. I doubt any infectious cause given no cough, fever, leukocytosis. Her pain seems very well controlled and is quite minimal at this time. She will be discharged back to her assisted living. - Data Points Laboratory Results: Laboratory Results 12/22/16 00:05 12/22/16 00:05 12/22/16 12/22/16 12/22/16 01:10 00:05 00:05 WBC 7.33 10^3/uL 10^3/uL (3.80-9.50) RBC 4.28 10^6/uL 10^6/uL (4.18-5.33) Hgb 13.1 g/dL g/dL (12.6-16.3) Hct 40.1 % % (38.0-47.0) MCV 93.7 fL fL (81.5-99.8) MCH 30.6 pg pg (27.9-34.1) MCHC 32.7 g/dL g/dL (32.4-36.7) RDW 13.1 % % (11.5-15.2) Plt Count 304 10^3/uL 10^3/uL (150-400) MPV 9.8 fL fL (8.7-11.7) Neut % (Auto) 67.4 % % (39.3-74.2) Lymph % (Auto) 19.9 % % (15.0-45.0) [place] % (Auto) 7.5 % % (4.5-13.0) Eos % (Auto) 4.1 % % (0.6-7.6) Baso % (Auto) 0.7 % % (0.3-1.7) Nucleat RBC Rel Count 0.0 % % (0.0-0.2) Absolute Neuts (auto) 4.94 10^3/uL 10^3/uL (1.70-6.50) Absolute Lymphs (auto) 1.46 10^3/uL 10^3/uL (1.00-3.00) Absolute Monos (auto) 0.55 10^3/uL 10^3/uL (0.30-0.80) Absolute Eos (auto) 0.30 10^3/uL 10^3/uL (0.03-0.40) Absolute Basos (auto) 0.05 10^3/uL 10^3/uL (0.02-0.10) Absolute Nucleated RBC 0.00 10^3/uL 10^3/uL (0-0.01) Immature Gran % 0.4 % % (0.0-1.1) Immature Gran # 0.03 10^3/uL 10^3/uL (0.00-0.10) Sodium 142 mEq/L mEq/L (134-144) Potassium 4.9 mEq/L mEq/L (3.5-5.2) Chloride 104 mEq/L mEq/L (97-110) Carbon Dioxide 23 mEq/l mEq/l (22-31) Anion Gap 15 mEq/L mEq/L (8-16) BUN 35 mg/dL H mg/dL (7-23) Creatinine 1.1 mg/dL H mg/dL (0.6-1.0) Estimated GFR 47 Glucose 107 mg/dL H mg/dL (70-100) Calcium 9.6 mg/dL mg/dL (8.5-10.4) Urine Color LT. YELLOW Urine Appearance CLOUDY Urine pH 5.5 (5.0-7.5) Ur Specific [place] 1.025 (1.002-1.030) Urine Protein TRACE H (NEGATIVE) Urine Ketones NEGATIVE (NEGATIVE) Urine Blood NEGATIVE (NEGATIVE) Urine Nitrate NEGATIVE (NEGATIVE) Urine Bilirubin NEGATIVE (NEGATIVE) Urine Urobilinogen 0.2 EU EU (0.2-1.0) Ur Leukocyte Esterase NEGATIVE (NEGATIVE) Urine RBC NONE SEEN /hpf /hpf (0-3) Urine WBC NONE SEEN /hpf /hpf (0-3) Ur Epithelial Cells 4+ /lpf H /lpf (NONE-1+) Urine Bacteria 1+ /hpf H /hpf (NONE SEEN) Urine Mucus TRACE /lpf /lpf (NONE-1+) Urine Glucose NEGATIVE (NEGATIVE) Medications Given: Discontinued Medications Sodium Chloride (Ns) 1,000 mls @ 0 mls/hr IV EDNOW ONE; Wide Open PRN Reason: Protocol Stop: 12/22/16 01:16 Last Admin: 12/22/16 01:24 Dose: 1,000 mls Ketorolac Tromethamine (Toradol) 15 mg IVP EDNOW ONE Stop: 12/22/16 01:35 Last Admin: 12/22/16 01:41 Dose: 15 mg Departure - Departure Disposition: Home, Routine, Self-Care Clinical Impression: Left sided abdominal pain, Pleural effusion, left, Dehydration Condition: Good Instructions: Dehydration (ED), Pleural Effusion (ED) Additional Instructions: Your x-ray today showed that you have a small left-sided pleural effusion. This needs to be followed up by your regular doctor and you should probably have repeat imaging to see if it is getting any bigger. In the meantime, you can take ibuprofen or Aleve for pain. You should make sure to drink plenty of fluids as your blood work today showed that you are dehydrated. Referrals: BHAVIK RIVERS [Primary Care Provider] - As per Instructions
[2016-12-22] MEDS ORDERED: NS 1,000 ML IV ONE (01:15)
[2016-12-22] MEDS ORDERED: KETOROLAC 15 MG/1 ML SDV IVP ONE (01:34)
[2016-12-22 01:43] LABS: COLOR LT. YELLOW; LEUKOCYTE ESTERASE,URINE NEGATIVE (NEGATIVE); NITRITE,URINE NEGATIVE (NEGATIVE); PH,URINE 5.5 (5.0-7.5)
[2016-12-22 01:55] LABS: RBC,URINE NONE SEEN /hpf (0-3)
[2016-12-22 01:56] LABS: BACTERIA 1+ /hpf (NONE SEEN); MUCUS TRACE /lpf (NONE-1+)
[2016-12-22 02:28] VITALS: O2SAT 96
[2016-12-22 03:33] VITALS: BP 118/76; PULSE 78
[2016-12-22 04:26] LABS: WBC,URINE NONE SEEN /hpf (0-3)
== END 2016-12-22 03:30 | disposition home or self-care (01) ==
LOC: EDUNIT#
PROC: 3E0337Z Introduction of Electrolytic and Water Balance Substance into Peripheral Vein, Percutaneous Approach (ICD-10-PCS; principal; 2016-12-21)
DX: R10.9 Unspecified abdominal pain (principal); J90 Pleural effusion, not elsewhere classified; E86.0 Dehydration; E86.9 Volume depletion, unspecified; I10 Essential (primary) hypertension; Z87.891 Personal history of nicotine dependence
CPT/HCPCS: 71020; 96361; 96374; 99285; J1885